=== PATIENT | female | born 1955 | race Caucasian/White ===

== ENCOUNTER 2016-03-31 12:06 | Outpatient (CLI) | payer OTHER ==
--- NOTE | 2016-03-31 14:00 | DIAGNOSTIC IMAGING REPORT ---
PROCEDURE: XR CHEST 2 VIEW INDICATION: CHEST PAIN TECHNIQUE: PA and lateral views. COMPARISON: Abdominal CT 07/30/2012 FINDINGS: Linear right lower lobe infiltrate. Left lung is clear. Heart and mediastinum are normal. Thorax is normal. IMPRESSION: 1. Linear right lower lobe infiltrate.
== END 2016-03-31 23:00 ==
LOC: XR SRH 12:06
DX: R91.8 Other nonspecific abnormal finding of lung field (principal)

== ENCOUNTER 2016-04-15 09:14 | Outpatient (CLI) | payer OTHER ==
--- NOTE | 2016-04-15 11:19 | DIAGNOSTIC IMAGING REPORT ---
PROCEDURE: XR CHEST 2 VIEW INDICATION: PNEUMONIA TECHNIQUE: PA and lateral views. COMPARISON: None. FINDINGS: Decreasing right lower lobe infiltrate. Left lung remains clear. Heart and pulmonary vasculature normal. IMPRESSION: 1. Decreasing right lower lobe infiltrate.
== END 2016-04-15 23:00 ==
LOC: XR SRH 09:14
DX: R91.8 Other nonspecific abnormal finding of lung field (principal)

== ENCOUNTER → 2016-04-24 | Outpatient (CLI) | payer OTHER ==
--- NOTE | 2016-04-24 14:06 | DIAGNOSTIC IMAGING REPORT ---
PROCEDURE: XR CHEST 2 VIEW INDICATION: PNEUMONIA TECHNIQUE: PA and lateral view. COMPARISON: chest x-ray 04/15/2016 FINDINGS: Lungs are clear. Cardiovascular structures are normal. Bony thorax is unremarkable. IMPRESSION: 1. Negative chest.
== END ==
LOC: XR SRH 13:32
DX: J18.9 Pneumonia, unspecified organism (principal)